=== PATIENT | male | born 2000 | race Caucasian/White ===

== ENCOUNTER 2022-05-29 22:35 | Emergency (ER) | payer OTHER, BC, SELFPAY ==
[2022-05-29 22:36] VITALS: BP 181/95; PULSE 109; RESP 18; TEMP 36.8; O2SAT 97; BMI 38.0
--- NOTE | 2022-05-29 23:23 | ED.VIS.GI ---
HPI HPI - GI History of Present Illness Chief Complaint: Abd Pain Narrative Narrative: 22-year-old male presenting with nausea, vomiting, epigastric pain. He states that last evening he ate some garlic Parmesan wings which is not out of the ordinary for him. Patient woke up today at 5 AM with nausea, vomiting and progressive diarrhea. He states he is not a heavy drinker. He has no significant medical history. He does not think he has a history of GERD. He has not had a fever at home. No cough or shortness of breath. He does state that maybe has had some chills. He does not have myalgias. PFSH PFSH Medical History no medical history Home Medications NK 05/29/22 [History Last Taken Unknown] Allergy/AdvReac Type Severity Reaction Status Date / Time sulfamethoxazole Allergy Other Verified 05/29/22 22:36 [From Bactrim] trimethoprim [From Bactrim] Allergy Other Verified 05/29/22 22:36 Surgical History no surgical history Social History Smoking Status: Never smoker ROS ROS ED Constitutional Constitutional ED: Reports chills; Denies fever(s) or sweats ENT ENT ED: Denies rhinorrhea or sore throat Cardiovascular Cardiovascular: Denies chest pain or palpitations Respiratory/Chest Respiratory/Chest: Denies cough or dyspnea Gastrointestinal Gastrointestinal: Reports abdominal pain, diarrhea, nausea and vomiting Genitourinary Genitourinary ED: Denies dysuria or hematuria Musculoskeletal Musculoskeletal: Denies arthralgias or back pain Integumentary Denies abscess Neurologic Neurologic: Denies headache(s) or paresthesias Psychiatric Psychiatric: Denies anxiety or depression EXAM Physical Exam Const Vital Signs: 05/29/22 22:36 Temperature 98.3 F Temperature Source Temporal Pulse Rate 109 H Respiratory Rate 18 Blood Pressure 181/95 H Blood Pressure Mean 123 Pulse Ox 97 Oxygen Delivery Method Room Air Positive well nourished General Appearance ED: NAD; Negative for pallor HEENT Reports moist mucous membranes normocephalic and atraumatic Eyes PERRL and EOMs intact bilaterally General Eye ED: Yes pale conjunctiva Resp normal respiratory effort and clear to auscultation bilaterally Effort and Inspection: respiratory distress Cardio regular rate and regular rhythm GI non-tender Neuro CN's II-XII intact bilaterally and moves all extremities Sensorium / Orientation: alert Motor Exam: strength 5/5 throughout Psych mental status grossly normal and thought process normal Skin no wounds General Skin Exam: Negative for jaundice or pallor MDM MDM MDM Narrative Medical decision making narrative: Patient medicated with Zofran and GI cocktail. On reevaluation he is feeling improved. I did offer to test him for COVID as this is possibly a viral syndrome however he does not want this. I do not believe he needs blood work or imaging. I will discharge him home with Zofran and Pepcid. He is to maintain a bland diet. Advance as tolerated. Impression: 1. Nausea/vomiting similar to abdominal pain Lab Data Attestation: I reviewed the patient's lab results. Discharge Plan Triage Chief Complaint: Abd Pain Other Complaint: Nausea/Vomiting/Diarrhea ED Provider: Tariq Pollack Dx/Rx/DC Orders Prescriptions: No Action NK Primary Care Provider: BILLY MATTHEW Referrals: BILLY MATTHEW [Other]
[2022-05-29] MEDS: Mag Hydrox/Al Hydrox/Simeth 30 ML UDC PO (23:33)
[2022-05-29] MEDS: Ondansetron ODT 4 MG Tablet PO (23:33)
[2022-05-30 00:49] VITALS: O2SAT 98
== END 2022-05-30 00:50 | disposition home or self-care (01) ==
PROVIDERS: Emergency Provider Student in an Organized Health Care Education/Training Program; Visit Provider Student in an Organized Health Care Education/Training Program
DX: R11.2 Nausea with vomiting, unspecified (principal); R68.83 Chills (without fever); R19.7 Diarrhea, unspecified; R10.13 Epigastric pain
CPT/HCPCS: 99283

== ENCOUNTER 2022-09-26 18:15 | Emergency (ER) | payer OTHER, BC, SELFPAY ==
[2022-09-26 18:16] VITALS: BP 164/92; PULSE 76; RESP 75; TEMP 36.1; O2SAT 99; BMI 36.6
--- NOTE | 2022-09-26 19:07 | EKG12_ITS ---
Test Reason : CP Blood Pressure : / mmHG Vent. Rate : 077 BPM Atrial Rate : 077 BPM P-R Int : 130 ms QRS Dur : 090 ms QT Int : 386 ms P-R-T Axes : 035 044 052 degrees QTc Int : 436 ms Normal sinus rhythm Normal ECG Confirmed by LAWANDA HAIDER, CECILIO ([id number]), editor city WARNER RIVAS ([id number]) on 09/27/2022 11:28:20 AM Referred By: CORINE Confirmed By:CECILIO WEBBER MD
--- NOTE | 2022-09-26 19:15 | RAD_ITS ---
STUDY: X-RAY CHEST REASON FOR EXAM: Male, 22 years old. cp TECHNIQUE: AP portable COMPARISON: None. FINDINGS: There is mild asymmetric reticulonodular interstitial thickening in the left lower lobe possibly representing inflammatory changes. There is no demonstrated pleural abnormality. Normal size heart. Normal mediastinum and benoit. Normal visualized pulmonary arteries. Normal visualized aortic arch and descending thoracic aorta. Normal visualized thoracic spine. Normal visualized ribs, clavicles, and shoulders. There is no demonstrated abnormality of the visualized soft tissue structures of the upper abdomen. RAD/Chest 1 View (Portable) IMPRESSION: Mildly prominent interstitial markings in the left lower lobe possibly inflammatory.. Electronically Signed: Frandy Cobb MD at 20:13 EST ,
--- NOTE | 2022-09-26 19:16 | EDS_ITS ---
HPI History of Present Illness Chief Complaint: Chest Pain Detail of Chief Complaint: With URI. Started on Augmentin for otitis media Informant: patient Onset/Context/Timing Onset: Today and Yesterday Activity at onset: gradual Timing: Intermittent Quality: Positive for Sharp and Stabbing Location: - (Lower sternum) Current Severity: Mild Maximum Severity: Mild Worsened By: Nothing Relieved By: Nothing Associated Symptoms: Positive for Cough; Negative for Nausea, Vomiting, Diaphoresis, Dyspnea, Fever, Lightheadedness, Acid Reflux or Palpitations Narrative Narrative: 22-year-old man is the best medical history. Has had URI symptoms. On Monday so a urgent care that wrote him and started him on Augmentin for right otitis media. States last 2 days he has developed lower chest discomfort described as a stabbing. No hemoptysis. No recent surgery or hospitalization. No leg pain or swelling. He is never had any like this before. Denies any shortness of breath. He does have a nonproductive cough. Prior Similar Symptoms: No Recent Illness/Hospitalization: No CVD Risk Factors: Negative for Hypertension, Diabetes, Hypercholesterolemia or Smoking PE Risk Factors: Negative for Recent Travel/Surgery, Recent Immobilization, Prior DVT or PE or OCP + Smoking + >/=35 TAD Risk Factors: Negative for Marfan's Syndrome PFSH PFSH Medical History no medical history no medical history Home Medications amoxicillin 875 mg-potassium clavulanate 125 mg tablet 1 tab PO BID 09/26/22 [History Last Taken Unknown] Allergy/AdvReac Type Severity Reaction Status Date / Time sulfamethoxazole Allergy Other Verified 09/26/22 18:16 [From Bactrim] trimethoprim [From Bactrim] Allergy Other Verified 09/26/22 18:16 Social History Smoking Status: Never smoker ROS ROS ED ROS Narrative URI symptoms. Nonproductive cough. Stabbing chest discomfort Review of Systems ROS Unobtainable: Denies due to encephalopathy Constitutional Constitutional ED: Reports fever(s); Denies chills Eyes Eyes: Reports none ENT ENT ED: Reports rhinorrhea; Denies ear pain Cardiovascular Cardiovascular: Reports chest pain; Denies orthopnea, palpitations, paroxysmal nocturnal dyspnea or racing heartbeat Respiratory/Chest Respiratory/Chest: Reports cough; Denies dyspnea, dyspnea on exertion, orthopnea or paroxysmal nocturnal dyspnea Gastrointestinal Gastrointestinal: Denies abdominal pain Genitourinary Genitourinary ED: Denies dysuria or hematuria Musculoskeletal Musculoskeletal: Denies arthralgias Integumentary Denies abscess Neurologic Neurologic: Denies headache(s) Psychiatric Psychiatric: Denies anxiety Endocrine Endocrinology: Denies cold intolerance Hematologic/Lymphatic Hematologic/Lymphatic: Denies easy bleeding or easy bruising EXAM Physical Exam Narrative Exam Narrative: Well up 22-year-old male. Vital signs stable afebrile. Pulse ox 9 9% on room air no signs hypoxia. H EENT exam unremarkable. Right TM is slightly red. No perforation. Scarring of both tympanic membranes from prior otitis media and ear tubes. Posterior pharynx normal. No erythema or exudate. Neck nontender no lymphadenopathy. Trachea midline. Lungs clear to auscultation bilaterally. Dry cough. Heart regular rhythm rate about 75 no murmur. Chest wall nontender. Abdomen soft nontender. Patient moving all 4 extremities. Calves are nontender without edema or cords. Neurologically is awake and alert with no focal motor deficits. Benign exam. Const Vital Signs: 09/26/22 18:16 09/26/22 19:19 Temperature 97 F L Temperature Source Temporal Pulse Rate 76 Respiratory Rate 75 H Respiratory Effort Short of Breath Respiratory Pattern Tachypnea Blood Pressure 164/92 H Blood Pressure Mean 116 Pulse Ox 99 Oxygen Delivery Method Room Air Positive well nourished, well developed and obese; Negative for cachectic, contractures or unkempt General Appearance ED: well developed and NAD; Negative for unkempt, cachectic or contractures Nutritional Appearance: obese; Negative for cachectic HEENT Reports moist mucous membranes; Denies dry mucous membranes HEENT Narrative: Right TM mildly red. Chronic scarring bilaterally. normocephalic and atraumatic; Negative for trauma or tenderness Mouth ED: No dry mucous membranes Mouth: No dry mucous membranes Eyes PERRL and EOMs intact bilaterally General Eye ED: Negative for pale conjunctiva or scleral icterus Neck no lymphadenopathy, supple and no JVD General: Negative for tenderness Chest Wall Negative for inspection of chest normal Chest: Negative for tenderness Resp normal respiratory effort and clear to auscultation bilaterally Effort and Inspection: Negative for respiratory distress Auscultation: Negative for rales, rhonchi or wheezes Cardio regular rate, regular rhythm, S1 normal heart sound, S2 normal heart sound and no murmurs Rate: Negative for bradycardia or tachycardic Rhythm: Negative for abnormal rhythm Peripheral Pulses: pulses 2+ throughout GI normal to inspection, nondistended, normoactive bowel sounds, non-tender, non- distended and no masses Auscultation: Negative for hyperactive bowel sounds Palpation: Negative for splenomegaly Back/Spine no CVA tenderness and no thoracic nor lumbar tenderness General Back: Negative for CVA tenderness Cervical Spine: Negative for cervical spine tenderness Extremity normal to inspection General Extremety ED: Negative for edema, pulses abnormal or tenderness General Extremity: Negative for edema or pulses abnormal Neuro oriented x3, CN's II-XII intact bilaterally and no sensory deficits noted Sensorium / Orientation: awake, alert, oriented to person, oriented to place and oriented to time; Negative for confused, lethargic or stuporous Motor Exam: strength 5/5 throughout Psych mental status grossly normal Appearance: Negative for unkempt Attitude: No agitated Mood & Affect: Negative for depressed, anxious or tearful Heart Score History: Slightly/Non-Suspicious ECG: Normal Age: </= 45 years Risk Factors: No Risk Factors Score: 0 MDM MDM MDM Narrative Medical decision making narrative: 22-year-old with URI symptoms on Augmentin for right otitis media. This may be reflux or musculoskeletal pain. I do not think it is pericarditis or myocarditis. There is no murmur. He has no reproducible chest wall pain. He could be reflux from the Augmentin. Chest x-ray will be obtained and EKG. I do not think he needs a full cardiac work-up. He has no significant risk factors or history of any prior DVT or PE. Repeat exam no change. We went over his normal EKG and chest x-ray showing a left lower lobe pneumonia. He is already on Augmentin twice a day which she will continue. It should treat a pneumonia well. Follow-up if not improving or return if worse. Lab Data Attestation: I reviewed the patient's lab results. Radiography Chest X-Ray - ED: 1 View, Read by ED Physician, Heart, Mediastinum, Bony Structures, Chronic Changes and Left Infiltrate Diagnostic Testing: Clinical Impression(s) from Imaging Studies Chest X-Ray 09/26/22 19:15 IMPRESSION: Mildly prominent interstitial markings in the left lower lobe possibly inflammatory.. Electronically Signed: Frandy Cobb MD at 20:13 EST Reading Location ID and State: [facility] / [place] , Service support , Chest x-ray, explainable, single view interpreted both by myself and radiologist shows a left lower lobe infiltrate. This will be treated as a pneumonia. Rhythm Strip Rhythm Strip: Sinus Rhythm Rate: 77 Ectopy: None EKG Initial EKG: Attestation: I personally reviewed and interpreted this EKG as follows: Interpretation: Sinus Rhythm and No Acute Injury Pattern Comments: Normal sinus rhythm rate of 77 no acute signs of MT or ischemia. No dysrhythmia. No pericarditis. Prior EKG tracings: not available for review Discharge Plan Triage Chief Complaint: Chest Pain ED Provider: Jose Manuel Mandujano Dx/Rx/DC Orders Clinical Impression: Left lower lobe pneumonia, Chest pain Prescriptions: No Action amoxicillin-pot clavulanate 875-125 mg tablet 1 tab PO BID Primary Care Provider: BILLY MATTHEW Referrals: BILLY MATTHEW [Other] (Follow-up with your doctor if not improving or return if worse.) Moses Osullivan MD [Med Staff - Head Of Loss Prevention] - 3-5 Days if not improving Activity Restrictions/Additional Instructions: Tylenol Motrin for pain and fever. Augmentin 1 pill twice a day after breakfast and dinner for pneumonia. Finish the prescription. Follow-up with your primary care physician or Dr. Moses Alvarez locally if not improving return if worse. Plenty of fluids and rest. I wrote you an excuse for off school today and tomorrow if needed. Disposition Disposition: Home, Self Care
[2022-09-26 20:39] VITALS: BP 154/71; PULSE 81; RESP 14; O2SAT 96
== END 2022-09-26 20:41 | disposition home or self-care (01) ==
PROVIDERS: Emergency Provider Emergency Medicine; Visit Provider Emergency Medicine
DX: J18.9 Pneumonia, unspecified organism (principal); H66.91 Otitis media, unspecified, right ear; E66.9 Obesity, unspecified
CPT/HCPCS: 71045; 93005; 99282

== ENCOUNTER 2023-03-26 11:18 | Emergency (ER) | payer OTHER, BC, SELFPAY ==
[2023-03-26 11:19] VITALS: BP 172/93; PULSE 77; RESP 18; TEMP 36.8; O2SAT 99
[2023-03-26 11:29] VITALS: BMI 40.0
[2023-03-26 11:35] VITALS: BP 158/79; PULSE 78; RESP 16; O2SAT 98
--- NOTE | 2023-03-26 11:40 | RAD_ITS ---
STUDY: X-RAY - RIGHT KNEE REASON FOR EXAM: Male, 22 years old. RIGHT KNEE INJURY AND PAIN UNABLE TO STAND TECHNIQUE: 5 view(s) of the knee. COMPARISON: None. FINDINGS: Normal visualized distal femur. Normal visualized proximal tibia and fibula. Normal proximal tibiofibular articulation. There is no demonstrated fracture. There is mild degenerative arthrosis of the medial femorotibial compartment. Normal lateral femorotibial compartment. Normal patellofemoral articulation. There is no demonstrated joint effusion. The soft tissue structures are unremarkable. RAD/Knee 4 or More Views IMPRESSION: Degenerative arthrosis. Electronically Signed: Shailesh Doshi MD at 12:45 EDT ,
--- NOTE | 2023-03-26 11:40 | EX.ED.DYSGE1 ---
HPI <ERENDIRA Gomez - Last Filed: 03/26/23 13:09> History of Present Illness Chief Complaint: Lower Extremity Injury Narrative Narrative: Patient presenting today due to pain in his right knee that he has had since last night after he injured his knee while he was trying to ambulate in his living room and turned to walk to the kitchen and felt a pop in his right knee and fell backwards on his bottom. He reports that he is unable to put weight onto his right knee. He reports a previous injury to his right knee and had a meniscal and partial ACL tear that required physical therapy. He denies any other injury. [facility] <ERENDIRA Gomez - Last Filed: 03/26/23 13:09> [facility] Medical History Hypertension Knee injury Home Medications amoxicillin 875 mg-potassium clavulanate 125 mg tablet 1 tab PO BID 09/26/22 [History Last Taken Unknown] Allergy/AdvReac Type Severity Reaction Status Date / Time sulfamethoxazole Allergy Other Verified 09/26/22 18:16 [From Bactrim] trimethoprim [From Bactrim] Allergy Other Verified 09/26/22 18:16 Social History Smoking Status: Never smoker ROS <ERENDIRA Gomez - Last Filed: 03/26/23 13:09> ROS ED Constitutional Constitutional ED: Denies chills or fever(s) Cardiovascular Cardiovascular: Denies chest pain Respiratory/Chest Respiratory/Chest: Denies cough or dyspnea Gastrointestinal Gastrointestinal: Denies abdominal pain, nausea or vomiting Musculoskeletal Musculoskeletal: Reports arthralgias; Denies myalgias Integumentary Denies Abrasions Neurologic Neurologic: Denies paresthesias or weakness EXAM <ERENDIRA Gomez - Last Filed: 03/26/23 13:09> Physical Exam Const Vital Signs: 03/26/23 11:19 03/26/23 11:35 03/26/23 12:03 Temperature 98.3 F Temperature Source Temporal Pulse Rate 77 78 91 Respiratory Rate 18 16 18 Blood Pressure 172/93 H 158/79 H 149/70 H Blood Pressure Mean 119 105 96 Pulse Ox 99 98 96 Oxygen Delivery Method Room Air Room Air Room Air 03/26/23 13:07 Temperature Temperature Source Pulse Rate 80 Respiratory Rate 17 Blood Pressure 159/62 H Blood Pressure Mean Pulse Ox 99 Oxygen Delivery Method Positive well nourished, well developed and no apparent distress General Appearance ED: well developed HEENT Reports normocephalic and head/scalp atraumatic Mouth ED: Yes moist mucous membranes normal Eyes PERRL and EOMs intact bilaterally Neck full ROM and supple Chest Wall inspection of chest normal Resp normal respiratory effort and clear to auscultation bilaterally Cardio regular rate and regular rhythm GI soft to palpation, non-tender, non-distended and no masses Back/Spine normal ROM and normal to inspection Extremity normal to inspection and full ROM Extremity Narrative: Pain to the medial and lateral aspect of the right knee limited range of motion to the right knee due to pain. Negative anterior drawer test, negative posterior drawer test, pain with valgus stress testing without any laxity noted. Neuro oriented x3, CN's II-XII intact bilaterally, moves all extremities, no focal motor deficits and no sensory deficits noted Sensorium / Orientation: awake and alert Psych mental status grossly normal and thought process normal Skin no rashes or lesions noted and no wounds <Dr. Oleg Buitrago DO - Last Filed: 05/07/23 08:23> Physical Exam Const Vital Signs: 03/26/23 11:19 03/26/23 11:35 03/26/23 12:03 Temperature 98.3 F Temperature Source Temporal Pulse Rate 77 78 91 Respiratory Rate 18 16 18 Blood Pressure 172/93 H 158/79 H 149/70 H Blood Pressure Mean 119 105 96 Pulse Ox 99 98 96 Oxygen Delivery Method Room Air Room Air Room Air 03/26/23 13:07 Temperature Temperature Source Pulse Rate 80 Respiratory Rate 17 Blood Pressure 159/62 H Blood Pressure Mean Pulse Ox 99 Oxygen Delivery Method [facility] <ERENDIRA Gomez - Last Filed: 03/26/23 13:09> [facility] Narrative Medical decision making narrative: Patient presenting today with pain to his right knee. he went to turn to walk into the kitchen and felt a pop and sudden pain to the right knee. He reports that he is unable to bear weight due to the pain. Patient is well-appearing and in no acute distress. He does have limited range of motion in the right knee due to pain. X-ray of the knee will be obtained to rule out fracture. Patient will be given a knee immobilizer and crutches. He has been given RICE instructions and is to alternate Tylenol and ibuprofen for pain as needed. He will be given an orthopedic follow-up. He is comfortable with plan. He will be discharged home in stable condition. I have personally performed a face to face assessment of the patient and have reviewed the MELBA Note. I performed a substantive portion of the visit including all aspects of the following. My walker findings include: History is [patient presents the emergency department with complaint of injury and pain to his right knee. Patient states that he was standing last night he went to turn and walk and felt a pop and sudden pain in his right knee. Patient having a hard time bearing weight secondary to pain. He has prior injury to that knee and he states he had a partial meniscus tear and sprain of the knee for which she had physical therapy. He has had intermittent pain since that time.] Exam is [HEENT-PERRLA, EOMI. Cranial nerves II through XII grossly intact. TMs clear. Mucous membranes moist. No adenopathy. Cardiovascular-regular rate and rhythm without murmur or ectopy Lungs-clear to auscultation, chest wall stable without crepitus or subcu emphysema Abdomen-normoactive bowel sounds, soft, nontender, no rebound or rigidity, no peritoneal signs. Extremities-intact ?4, normal range of motion, normal pulses. Right knee-no obvious deformity. No obvious effusion. He is got diffuse tenderness palpation over the medial and lateral joint lines. Patient has pain with range of motion but is able to flex and extend the knee. Anterior and posterior drawer test were negative for laxity. No varus or valgus stress laxity noted on exam.] Medical Decison Making [4 view x-rays of right knee obtained interpreted by myself as no evidence of fracture or dislocation. Radiology in agreement. Patient will be placed in a knee immobilizer and given crutches. He is to use ibuprofen or Tylenol for discomfort. He will be referred to orthopedics for follow-up.] Other additions or changes: [None] Radiography X-Ray: Read by ED Physician and Read by Radiologist Diagnostic Testing: Clinical Impression(s) from Imaging Studies Knee X-Ray 03/26/23 11:40 IMPRESSION: Degenerative arthrosis. Electronically Signed: Shailesh Doshi MD at 12:45 EDT Reading Location ID and State: [address] [place] [id number] , Service support , <Dr. Oleg Buitrago, DO - Last Filed: 05/07/23 08:23> [facility] Narrative Medical decision making narrative: I have personally performed a face to face assessment of the patient and have reviewed the MELBA Note. I performed a substantive portion of the visit including all aspects of the following. My walker findings include: History is [patient presents the emergency department with complaint of injury and pain to his right knee. Patient states that he was standing last night he went to turn and walk and felt a pop and sudden pain in his right knee. Patient having a hard time bearing weight secondary to pain. He has prior injury to that knee and he states he had a partial meniscus tear and sprain of the knee for which she had physical therapy. He has had intermittent pain since that time.] Exam is [HEENT-PERRLA, EOMI. Cranial nerves II through XII grossly intact. TMs clear. Mucous membranes moist. No adenopathy. Cardiovascular-regular rate and rhythm without murmur or ectopy Lungs-clear to auscultation, chest wall stable without crepitus or subcu emphysema Abdomen-normoactive bowel sounds, soft, nontender, no rebound or rigidity, no peritoneal signs. Extremities-intact ?4, normal range of motion, normal pulses. Right knee-no obvious deformity. No obvious effusion. He is got diffuse tenderness palpation over the medial and lateral joint lines. Patient has pain with range of motion but is able to flex and extend the knee. Anterior and posterior drawer test were negative for laxity. No varus or valgus stress laxity noted on exam.] Medical Decison Making [4 view x-rays of right knee obtained interpreted by myself as no evidence of fracture or dislocation. Radiology in agreement. Patient will be placed in a knee immobilizer and given crutches. He is to use ibuprofen or Tylenol for discomfort. He will be referred to orthopedics for follow-up.] Other additions or changes: [None] Radiography Diagnostic Testing: Clinical Impression(s) from Imaging Studies Knee X-Ray 03/26/23 11:40 IMPRESSION: Degenerative arthrosis. Electronically Signed: Shailesh Doshi MD at 12:45 EDT Reading Location ID and State: [address] [place] [address] , Service support , Discharge Plan Triage Chief Complaint: Lower Extremity Injury ED Midlevel Provider: Karina Macdonald ED Provider: Oleg Buitrago Dx/Rx/DC Orders Clinical Impression: Right knee sprain Instructions: ED Knee Sprain Prescriptions: No Action amoxicillin-pot clavulanate 875-125 mg tablet 1 tab PO BID Primary Care Provider: Care Physician,No Primary Referrals: BILLY MATTHEW [Other] Leoncio Mejia MD [Med Staff - Active Staff] - 5-7 Days Activity Restrictions/Additional Instructions: Ice your knee several times a day for the next few days, alternate Tylenol and ibuprofen for pain, follow-up with orthopedics. Disposition Disposition: Home, Self Care Discharge Date/Time: 03/26/23 13:12
[2023-03-26 12:03] VITALS: BP 149/70; PULSE 91; RESP 18; O2SAT 96
[2023-03-26 13:07] VITALS: BP 159/62; PULSE 80; RESP 17; O2SAT 99
== END 2023-03-26 13:12 | disposition home or self-care (01) ==
PROVIDERS: Emergency Provider Emergency Medicine; Visit Provider Emergency Medicine
DX: S83.91XA Sprain of unspecified site of right knee, initial encounter (principal); X58.XXXA Exposure to other specified factors, initial encounter; Y93.01 Activity, walking, marching and hiking; Y92.008 Other place in unspecified non-institutional (private) residence as the place of occurrence of the external cause; I10 Essential (primary) hypertension
CPT/HCPCS: 73564; 99284

== ENCOUNTER 2024-08-23 21:28 | Emergency (ER) | payer OTHER, BC, SELFPAY ==
[2024-08-23 21:29] VITALS: BP 182/110; PULSE 113; RESP 18; TEMP 38.3; O2SAT 100; BMI 44.4
[2024-08-23] MEDS: 0.9% Normal Saline (1000mL) 1,000 ML 999 ML IV (22:33)
[2024-08-23] MEDS: dexAMETHasone 10 MG/ML Vial IV (22:33)
[2024-08-23] MEDS: Ketorolac 30 MG/ML Syringe IV (22:33)
--- NOTE | 2024-08-23 22:40 | RAD_ITS ---
EXAM: XR CHEST, 2 VIEWS CLINICAL INDICATION: cough TECHNIQUE: Frontal and lateral views of the chest. COMPARISON: Previous chest radiograph of 09/26/2022. FINDINGS: LIMITATIONS: Respiratory motion artifact on the lateral view. LUNGS AND PLEURAL SPACES: Low lung volumes with crowding of the basilar bronchovascular markings. Mild peribronchial cuffing is present at both pulmonary benoit. No airspace disease. No pleural effusion. No pneumothorax. HEART: Unremarkable. Cardiac silhouette not enlarged. Normal pulmonary vasculature. MEDIASTINUM: Central airways and mediastinal contour are unremarkable. BONES/JOINTS: Unremarkable. No acute fracture. SOFT TISSUES: Unremarkable. RAD/Chest PA and Lateral IMPRESSION: 1. Mild peribronchial cuffing indicating bronchial wall inflammation/bronchitis. 2. No pneumonia. Electronically Signed: Demarcus Keith MD at 23:26 EST ,
[2024-08-23 22:43] LABS: Bacteria 0 SEEN /hpf (None Seen); Mucous, Urine 0 SEEN /hpf (<or=2+); Red Blood Cells-Urine 0 SEEN /hpf (0-5); Squamous Epithelial Cells - UA 0 SEEN /hpf (0-5); White Blood Cells 0 SEEN /hpf (0-5)
[2024-08-23 22:46] LABS: Absolute Lymphocyte Count 1.31 X10^3/uL (0.83-4.51); Absolute Neutrophil Count 3.6 X10^3/uL (2.0-7.7); Basophil# 0.02 X10^3/uL; Basophil% 0.3 % (0-1); Eosinophil# 0.08 X10^3/uL; Eosinophils% 1.4 % (0-5); Hematocrit 47.2 % (40-54); Hemoglobin 15.5 g/dL (13.0-16.5); Lymphocyte # 1.31 X10^3/ul (0.83-4.51); Lymphocyte % 22.4 % (19-41); Mean Corp Hgb Conc 32.8 g/dL (32-36); Mean Corpuscular Hgb 27.3 pg (27.0-32.0); Mean Corpuscular Volume 83.1 fL (80-94); Mean Platelet Vol. 9.3 fl (6.2-12.0); Monocyte# 0.83 X10^3/uL; Monocyte% 14.2 % (0-10); NRBC Flagged by Analyzer 0 % (0-5); Neutrophil # 3.59 X10^3/uL (2.7-7.7); Neutrophil % 61.2 % (47-70); Platelet Count 232 K/mm3 (150-450); RBC Distribution Width CV 13.2 % (11.6-14.6); RBC Distribution Width SD 40.2 fl (35.1-43.9); Red Blood Count 5.68 M/mm3 (4.6-6.2); White Blood Count 5.9 K/mm3 (4.4-11.0)
[2024-08-23 22:47] LABS: Color, Urine Yellow (Yellow); Glucose, Dipstick Normal (Normal); Ketone-Dipstick Negative (Negative); Leukocyte Esterase-Dipstick Negative /ul (Negative); Nitrite-Dipstick Negative (Negative); Occult Blood-Urine 10 /ul (Negative); Protein-Dipstick 30 mg/dl (Negative); Specific Gravity, Urine 1.015 (1.002-1.030); Urine Bilirubin Dipstick Negative (Negative); Urine Clarity Clear (Clear); Urine Urobilinogen 1 mg/dl (Normal)
[2024-08-23 23:00] VITALS: BP 163/92; PULSE 104; RESP 18; TEMP 37.3; O2SAT 97
[2024-08-23 23:03] LABS: AST(SGOT) 37 U/L (15-37); Alanine Aminotransfer ALT/SGPT 68 U/L (16-61); Albumin, Serum 3.6 g/dL (3.2-5.0); Alkaline Phosphatase 82 U/L (45-117); Anion Gap 4 (5-15); BUN 6 mg/dL (7-18); BUN/Creat Ratio 8.1 RATIO (10-20); Bilirubin, Direct 0.14 mg/dL (0.00-0.30); Calcium,Total 9.1 mg/dL (8.5-10.1); Chloride 105 mmol/L (98-107); Creatinine, Serum 0.74 mg/dL (0.70-1.30); EST Glomerular Filtration Rate 140 mL/min (>60); Est Glom Filt Rate - Afr Amer 169 mL/min (>60); Estimated Creatinine Clearance 234.92 ml/min; Globulin 4.4 g/dL (2.2-4.2); Glucose 96 mg/dL (74-106); Lipase 25 U/L (13-75); Potassium 3.9 mmol/L (3.5-5.1); Sodium Level 139 mmol/L (136-145)
--- NOTE | 2024-08-24 00:20 | EX.ED.DYSGE1 ---
HPI History of Present Illness Chief Complaint: General Illness Informant: patient Narrative Narrative: Patient is a 24-year-old male with past medical history of hypertension. He states for 3 days he has had generalized fatigue with nasal congestion sore throat cough and abdominal discomfort. He denies any known sick contact. He states he went to an urgent care because of his symptoms and tested negative for COVID and influenza. However he states his symptoms are not improving and secondary to this he comes in for evaluation [facility] Medical History (Updated 08/24/24 @ 01:[address] Bg Porras, DO) Hypertension Knee injury Home Medications ?Medication ?Instructions ?Recorded ?Last Taken ?Type krghiyddoogveni-yympquoraierddq-SH 7.5 ml PO Q4H 08/23/24 08/23/24 17:00 History 2 mg-30 mg-10 mg/5 mL oral syrup prednisone 20 mg tablet 40 mg (2 x 20 mg) PO DAILY 7 days 08/24/24 Unknown Rx #14 tabs Allergy/AdvReac Type Severity Reaction Status Date / Time sulfamethoxazole (From Allergy Other Verified 08/23/24 21:30 Bactrim) trimethoprim (From Bactrim) Allergy Other Verified 08/23/24 21:30 Surgical History (Updated 08/23/24 @ 21:43 by Maryam Guadarrama) Hx of knee surgery Social History Smoking Status: Never smoker ROS ROS ED Constitutional Constitutional ED: Reports chills and fever(s) ENT ENT ED: Reports ear pain, rhinorrhea and sore throat Cardiovascular Cardiovascular: Denies chest pain Respiratory/Chest Respiratory/Chest: Reports cough and dyspnea Gastrointestinal Gastrointestinal: Reports abdominal pain and nausea; Denies diarrhea or vomiting Genitourinary Genitourinary ED: Reports urinary frequency; Denies dysuria or hematuria Musculoskeletal Musculoskeletal: Reports myalgias Integumentary Denies rash Neurologic Neurologic: Reports headache(s) Hematologic/Lymphatic Hematologic/Lymphatic: Denies easy bleeding or easy bruising EXAM Physical Exam Const Vital Signs: 08/23/24 21:29 08/23/24 21:29 08/23/24 21:41 Temperature 100.9 F H 100.9 F H Temperature Source Oral Oral Pulse Rate 113 H 113 H Respiratory Rate 18 18 Respiratory Effort Normal Non-Labored Respiratory Pattern Normal Blood Pressure 182/110 H 182/110 H Blood Pressure Mean 134 134 Pulse Ox 100 100 Oxygen Delivery Method Room Air Room Air 08/23/24 23:00 08/24/24 00:29 Temperature 99.1 F 98.0 F Temperature Source Oral Pulse Rate 104 H 78 Respiratory Rate 18 18 Respiratory Effort Respiratory Pattern Blood Pressure 163/92 H 149/85 H Blood Pressure Mean 115 106 Pulse Ox 97 97 Oxygen Delivery Method Room Air Positive well nourished, well developed and obese General Appearance ED: well developed; Negative for pallor Nutritional Appearance: obese HEENT HEENT Narrative: Bilateral TMs are retracted but show no secondary changes to suggest infection Nasal mucosa is hyperemic and boggy with enlarged inferior nasal turbinates There is cobblestoning noted in the posterior pharynx consistent with sinus drainage without airway edema or compromise; no secondary findings to suggest infection Eyes PERRL and EOMs intact bilaterally General Eye ED: Negative for scleral icterus Neck supple Neck Narrative: No nuchal rigidity or meningeal signs noted Resp normal respiratory effort Resp Narrative: Breath sounds are slight diminished throughout with faint rhonchi noted in the bilateral lower lobes but no signs of respiratory distress Cardio regular rhythm Rate: tachycardic and other Other Details: Tachycardic rate with regular rhythm No murmurs rubs or gallop Radial and carotid pulses are equal and symmetric GI non-distended and no masses GI Narrative: Abdomen is soft and nondistended with hyperactive bowel sounds. There is mild pain palpation in the midepigastric region without voluntary guarding or rigidity or pulsatile mass Auscultation: hyperactive bowel sounds Palpation: soft Extremity normal to inspection Extremity Narrative: No asymmetric edema no pitting edema negative Homans' sign bilaterally Neuro oriented x3, CN's II-XII intact bilaterally and no sensory deficits noted Sensorium / Orientation: alert Motor Exam: strength 5/5 throughout Psych Mood & Affect: anxious Skin no rashes or lesions noted and no wounds General Skin Exam: Negative for jaundice or pallor MDM MDM MDM Narrative Medical decision making narrative: Patient arrived to ER hypertensive and febrile. He had multiple complaints and his history and exam is most concerning or consistent with a viral infection such as COVID influenza or RSV. With pain in the upper abdomen this could be atypical presentation for pancreatitis versus biliary colic versus acute cholecystitis. Patient may also have developed a secondary pneumonia or as he has urinary frequency potentially a atypical UTI. Therefore basic blood work with chest x-ray viral swab and urine sample were obtained. Labs revealed no clinically significant findings going against pancreatitis with normal lipase and biliary colic acute cholecystitis without white count or elevation to his liver enzymes. Urine showed no sign of infection going against UTI/pyelonephritis. Chest x-ray revealed no acute lung pathology but viral swab was positive for influenza A which would correlate with his symptoms and fever. At this time he is not hypoxic or in respiratory distress he does not have septic changes so there is no need for admission and he is safe for discharge home with symptomatic care. As he is over 72 hours out from onset of symptoms I do not feel there is need for Tamiflu administration. History & Record Review Discussion w/independent historian: Patient Lab Data Attestation: I reviewed the patient's lab results. Labs: Laboratory Results - last 24 hr 08/23/24 08/23/24 22:25 22:33 WBC 5.9 RBC 5.68 Hgb 15.5 Hct 47.2 MCV 83.1 MCH 27.3 MCHC 32.8 RDW Std Deviation 40.2 RDW Coeff of Fred 13.2 Plt Count 232 MPV 9.3 Immature Gran % (Auto) 0.500 Neut % (Auto) 61.2 Lymph % (Auto) 22.4 [place] % (Auto) 14.2 H Eos % (Auto) 1.4 Baso % (Auto) 0.3 Absolute Neuts (auto) 3.6 Absolute Lymphs (auto) 1.31 Nucleated RBC % 0 Sodium 139 Potassium 3.9 Chloride 105 Carbon Dioxide 30.0 Anion Gap 4 L BUN 6 L Creatinine 0.74 Estim Creat Clear Calc 234.92 Est GFR (MDRD) Af Amer 169 Est GFR (MDRD) Non-Af 140 BUN/Creatinine Ratio 8.1 L Glucose 96 Calcium 9.1 Total Bilirubin 0.40 Direct Bilirubin 0.14 AST 37 ALT 68 H Alkaline Phosphatase 82 Total Protein 8.0 Albumin 3.6 Globulin 4.4 H Lipase 25 Urine Color Yellow Urine Clarity Clear Urine pH 6.0 Ur Specific [place] 1.015 Urine Protein 30 H Urine Glucose (UA) Normal Urine Ketones Negative Urine Occult Blood 10 H Urine Nitrite Negative Urine Bilirubin Negative Urine Urobilinogen 1 H Ur Leukocyte Esterase Negative Urine RBC 0 SEEN Urine WBC 0 SEEN Ur Squamous Epith Cells 0 SEEN Urine Bacteria 0 SEEN Urine Mucus 0 SEEN Radiography Diagnostic Testing: Clinical Impression(s) from Imaging Studies Chest X-Ray 08/23/24 22:40 IMPRESSION: 1. Mild peribronchial cuffing indicating bronchial wall inflammation/bronchitis. 2. No pneumonia. Electronically Signed: Demarcus Keith MD at 23:26 EST , Chest x-ray as interpreted by the emergency medicine physician reveals streaking throughout the lung tissue consistent with bronchitis without acute infiltrate pneumothorax or pleural effusion. Discharge Plan Triage Chief Complaint: General Illness Other Complaint: Complaint ED Provider: Bg Porras Dx/Rx/DC Orders Clinical Impression: Influenza A, Pyrexia, Hypertension Instructions: ED Fever Control (Adult), ED Influenza (Adult) Prescriptions: New prednisone 20 mg tablet 40 mg PO DAILY 7 Days Qty: 14 0RF No Action sviohkstfuhhcic-eizosndcc-OW 2-30-10 mg/5 mL syrup 7.5 ml PO Q4H Stand Alone Forms: ED Work / School Excuse Primary Care Provider: Care Physician,No Primary Referrals: Gabriel Kaiser MD [Med Staff - Active Staff] - Care Physician,No Primary [Primary Care Provider] - Activity Restrictions/Additional Instructions: Please continue with Tylenol and/or Motrin for fever control and keep yourself well-hydrated. Use the steroid as directed to reduce inflammation. Influenza will last on average 5 to 10 days. You may have a fever the entire time. If you have any further concerns or worsening of symptoms please return to the ER for repeat evaluation Print Language: Greek Disposition Disposition: Home, Self Care Discharge Date/Time: 08/24/24 00:30
[2024-08-24 00:29] VITALS: BP 149/85; PULSE 78; RESP 18; TEMP 36.7; O2SAT 97
== END 2024-08-24 00:30 | disposition home or self-care (01) ==
PROVIDERS: Emergency Provider Emergency Medicine; Visit Provider Emergency Medicine
DX: J10.1 Influenza due to other identified influenza virus with other respiratory manifestations (principal); Z11.52 Encounter for screening for COVID-19; R11.0 Nausea; R35.0 Frequency of micturition; R10.10 Upper abdominal pain, unspecified; I10 Essential (primary) hypertension

== ENCOUNTER 2024-08-30 03:06 | Emergency (ER) | payer OTHER, BC, SELFPAY ==
[2024-08-30 03:07] VITALS: BP 158/98; PULSE 93; RESP 16; TEMP 36.7; O2SAT 98; BMI 46.9
--- NOTE | 2024-08-30 03:20 | EX.ED.DYSGE1 ---
HPI History of Present Illness Chief Complaint: Ear Problem Narrative Narrative: Patient is a 24-year-old male with past medical history hypertension, asthma who presents to the emergency department with chief complaint of right ear pain. Patient states that on Monday he was diagnosed with influenza was ultimately started on steroids was given a cough syrup. Patient states that recently he had a follow-up appoint with his doctor via virtual visit and they also started him on azithromycin. He states that he has been taking his medications as prescribed. He states that approximately 3 hours prior to arrival here he woke up and noted that he had right ear pain. He is concerned that something was wrong with his eardrum therefore he came here for the valuation management. Patient states that he feels that that his hearing is somewhat muffled out of this right ear. He states that he did use a Q-tip prior to arrival to to check for fluid in the ear canal. [facility] Medical History Hypertension Knee injury Home Medications ?Medication ?Instructions ?Recorded ?Last Taken ?Type nfkhwwiekxrdqnu-cwjyyxbhupuryto-RC 7.5 ml PO Q4H 08/23/24 08/23/24 17:00 History 2 mg-30 mg-10 mg/5 mL oral syrup prednisone 20 mg tablet 40 mg (2 x 20 mg) PO DAILY 7 days 08/24/24 Unknown Rx #14 tabs albuterol sulfate 90 mcg/actuation 2 inh inhalation Q4H PRN shortness 08/30/24 Unknown History aerosol inhaler of breath or wheezing azithromycin 250 mg tablet 250 mg PO DAILY 08/30/24 Unknown History ciprofloxacin 0.2 %-hydrocortisone 3 drp RIGHT EAR BID 7 days #10 mL 08/30/24 Unknown Rx 1 % ear drops,suspension ondansetron 8 mg disintegrating 8 mg PO Q8H PRN PRN nausea/vomiting 08/30/24 Unknown History tablet promethazine-DM 6.25 mg-15 mg/5 mL 7.5 ml PO Q6H PRN cough 08/30/24 Unknown History oral syrup Allergy/AdvReac Type Severity Reaction Status Date / Time sulfamethoxazole (From Allergy Other Verified 08/30/24 03:10 Bactrim) trimethoprim (From Bactrim) Allergy Other Verified 08/30/24 03:10 Surgical History Hx of knee surgery Social History Smoking Status: Never smoker ROS ROS ED ROS Narrative Constitutional: Denies any fevers, chills, lightheadedness, dizziness Eyes, ears, nose, throat: Complains of right ear pain as noted above denies change in vision double vision blurry vision Cardiovascular: Denies chest pain or palpitations Respiratory: Denies coughing wheezing shortness of breath Abdomen: Denies nausea vomit diarrhea Neurological: Denies numbness, weakness, tingling Musculoskeletal: Denies back pain Skin: Denies rashes or lesions EXAM Physical Exam Narrative Exam Narrative: General: Patient was lying in bed rest comfortably did not appear to be in acute distress Head: Atraumatic, normocephalic Eyes, ears, nose, throat: Patient's TMs visualized bilaterally. Patient's right tympanic membrane does appear to have fluid behind it however no evidence of infection at this point time. Patient does have some mild erythema noted in the right external auditory ear canal noted, left TM and external auditory canal clear no concern for infection on this side no concern for mastoiditis, PERRL bilaterally, EOMI bilaterally, no conjunctival injection noted Neck: Soft, supple, trachea midline, Cardiovascular: Regular rate and rhythm no murmurs gallops rubs noted Extremities: +5/5 strength noted in the bilateral upper and lower extremities, radial pulses +2/4 in the bilateral upper extremities Neurological: Patient following commands knew that he was at [facility] year is 2024 Skin: Warm, intact, no rashes or lesions noted Const Vital Signs: 08/30/24 03:07 Temperature 98.1 F Temperature Source Oral Pulse Rate 93 Respiratory Rate 16 Blood Pressure 158/98 H Blood Pressure Mean 118 Pulse Ox 98 MDM MDM MDM Narrative Medical decision making narrative: Patient is a 24-year-old male who presented to the emergency department with a chief complaint of right ear pain. On the differential diagnose includes but not limited to otitis media, otitis externa. Patient is nontoxic in appearance patient is already on steroids for his influenza and asthma as well as azithromycin antibiotic for concern that he developed pneumonia per his primary care physician according to the patient he states he has been taking this. Patient has mild erythema noted to the external auditory canal therefore we will place him on Ciprodex eardrops. He was advised to continue the medications that he has been prescribed. He is advised to follow-up with her primary care physician and return with worsening symptoms or other concerns. He is agreeable this plan he will be given Tylenol for pain. All question concerns answered he is discharged home in stable condition. Discharge Plan Triage Chief Complaint: Ear Problem ED Provider: Dariusz King Dx/Rx/DC Orders Clinical Impression: Acute pain of right ear Prescriptions: New ciprofloxacin-hydrocortisone 0.2-1 % drops,suspension 3 drp RIGHT EAR BID 7 Days Qty: 10 0RF No Action albuterol sulfate 90 mcg/actuation HFA aerosol inhaler 2 inh INHALATION Q4H PRN (Reason: shortness of breath or wheezing) Patient Comments: [NO ORIGINAL SIG] azithromycin 250 mg tablet 250 mg PO DAILY promethazine-DM 6.25-15 mg/5 mL syrup 7.5 ml PO Q6H PRN (Reason: cough) ondansetron 8 mg tablet,disintegrating 8 mg PO Q8H PRN PRN (Reason: nausea/vomiting) ydyskvgggwbjvai-cgmatzwcs-IB 2-30-10 mg/5 mL syrup 7.5 ml PO Q4H prednisone 20 mg tablet 40 mg PO DAILY 7 Days Qty: 14 0RF Primary Care Provider: Care Physician,No Primary Referrals: Care Physician,No Primary [Primary Care Provider] - Aidee Villarreal [facility], [[facility] [place]] - Activity Restrictions/Additional Instructions: Follow-up with the primary care physician that you referred to or the primary care physician back at home for yourself. Return with worsening symptoms or any concerns. Take all medications as prescribed. The eardrops were sent to your pharmacy. Rotate Tylenol and ibuprofen skgjen-gmi-fkhef for pain control. When you do this you can take something every 3 hours by rotating the 2. Print Language: Arabic Disposition Disposition: Home, Self Care
[2024-08-30] MEDS: Acetaminophen 500 MG Tablet 1000 MG PO (03:32)
[2024-08-30 03:35] VITALS: BP 153/100; PULSE 80; RESP 16; TEMP 36.7; O2SAT 99
== END 2024-08-30 03:36 | disposition home or self-care (01) ==
PROVIDERS: Emergency Provider Emergency Medicine; Visit Provider Emergency Medicine
DX: H92.01 Otalgia, right ear (principal); J10.1 Influenza due to other identified influenza virus with other respiratory manifestations; I10 Essential (primary) hypertension; J45.909 Unspecified asthma, uncomplicated; Z79.899 Other long term (current) drug therapy
CPT/HCPCS: 99282